=== PATIENT | male | born 1980 | race African-American/Black ===

== ENCOUNTER 2016-09-22 00:22 | Emergency (ER) | payer OTHER ==
[~2016-09-22] VITALS: Ht 152.4 cm; Wt 74.8 kg
== END 2016-09-22 02:42 | disposition home or self-care (01) ==
LOC: ED 00:22
PROC: 0CQ0XZZ Repair Upper Lip, External Approach (ICD-10-PCS; principal; 2016-09-22)
DX: S01.511A Laceration without foreign body of lip, initial encounter (principal); S60.512A Abrasion of left hand, initial encounter; Y04.0XXA Assault by unarmed brawl or fight, initial encounter; Y92.410 Unspecified street and highway as the place of occurrence of the external cause
CPT/HCPCS: 90471; 90715; 99283